=== PATIENT | male | born 1975 | race Caucasian/White ===

== ENCOUNTER 2016-10-13 02:46 | Emergency (ER) | payer MEDICAID ==
[~2016-10-13] VITALS: Ht 193 cm; Wt 95.5 kg
[2016-10-13 02:49] VITALS: TEMP 97.6
[2016-10-13] MEDS ORDERED: CLEOCIN HCL300 MG PO (02:52)
[2016-10-13] MEDS ORDERED: MEDROL4 MG (02:53)
[2016-10-13] MEDS ORDERED: PROSCAR 5MG5 MG PO (02:53)
[2016-10-13] MEDS ORDERED: ADDERALL5 MG PO (02:54)
[2016-10-13] MEDS ORDERED: PRIL40 PO (02:54)
[2016-10-13 04:00] LABS: BASO % 0.3 % (0.0-2.0); EOS # 0.1 (0.0-0.7); EOS % 0.5 % (0-4.0); GRAN # 6.6 (1.4-6.5); GRAN % 71.3 % (42.2-75.2); HEMATOCRIT 43.8 % (42.0-52.0); HEMOGLOBIN 14.9 g/dl (13.5-18.0); LYMPH # 1.8 (1.2-3.4); LYMPH % 19.5 % (20.0-51.0); MEAN CELL VOLUME 87 fl (80.0-100.0); MEAN CORPUSCULAR HEMOGLOBIN 30 pg (27.0-31.0); MEAN CORPUSCULAR HGB CONC 34 g/dl (33.0-37.0); MEAN PLATELET VOLUME 10.2 fl (7.4-10.4); MONO # 0.8 (0.1-0.6); MONO % 8.1 % (1.7-9.3); PLATELET COUNT 216 K/mm3 (130-400); RED BLOOD COUNT 5.01 M/mm3 (4.20-5.60); REDCELL DISTRIBUTION WIDTH-CV 11.6 % (11.5-14.5); WHITE BLOOD COUNT 9.3 K/mm3 (4.8-10.8)
[2016-10-13 04:12] LABS: ADJUSTED CALCIUM 8.9 mg/dL (8.4-10.2); ALBUMIN 4.4 gm/dL (3.5-5.0); BILIRUBIN,TOTAL 0.9 mg/dL (0.0-1.0); C-REACTIVE PROTEIN 1.2 mg/dL (0.0-0.9); CALCIUM 9.2 mg/dL (8.4-10.2); CREATININE, serum 0.9 mg/dL (0.66-1.25); POTASSIUM 4.1 mmol/L (3.4-5.0); TOTAL PROTEIN 7.5 gm/dL (6.4-8.2)
[2016-10-13 08:10] VITALS: BP 116/76; PULSE 68
== END 2016-10-13 08:10 | disposition home or self-care (01) ==
LOC: COL.ER 02:46
PROVIDERS: Emergency Medicine
DX: J36 Peritonsillar abscess (principal); F90.9 Attention-deficit hyperactivity disorder, unspecified type; K21.9 Gastro-esophageal reflux disease without esophagitis
CPT/HCPCS: J1100; J1170; J2405; J7030; Q9967

== ENCOUNTER → 2016-12-13 | Outpatient (CLI) | payer MEDICAID ==
[~2016-12-13] MED LIST: ADDERALL5 MG PO; CLEOCIN HCL300 MG PO; MEDROL4 MG; NORCO 325 MG-51 TAB PO; PRIL40 PO; PROSCAR 5MG5 MG PO
== END ==
LOC: COL.RAD
DX: K76.89 Other specified diseases of liver (principal); K21.9 Gastro-esophageal reflux disease without esophagitis

== ENCOUNTER → 2017-03-19 | Outpatient (CLI) | payer MEDICAID | LOC: COL.RAD 03-18 15:26 | DX: K21.9 Gastro-esophageal reflux disease without esophagitis (principal) | CPT/HCPCS: A9537 ==